=== PATIENT | male | born 1995 | race Two or more races ===

== ENCOUNTER 2017-08-22 18:12 | Emergency (ER) | payer SELFPAY ==
[2017-08-22 18:52] VITALS: BP 143/73
--- NOTE | 2017-08-22 19:29 | UC ---
Complaint Male HPI - HPI Summary HPI Summary: Pt c/o painful lesion on end of penis. Pt states he has new sexual partner and lesion begin after first , unprotected intercourse with her. - History of Current Complaint Hx Obtained From: Patient, Road Grader Onset/Duration: Sudden Onset, Lasting Days, Still Present Timing: Constant Severity Initially: Mild Severity Currently: Mild Pain Intensity: 0 Location: Penis Character: Sharp, Burning Aggravating Factor(s): Palpation Alleviating Factor(s): Nothing Associated Signs And Symptoms: Positive: Negative - Risk Factors Testicular Torsion: Negative <Simin Prasad NP - Last Filed: 08/22/17 19:59> <Ju Townsend - Last Filed: 08/23/17 07:08> - History of Current Complaint Chief Complaint: UCSTDScreening Stated Complaint: PERSONAL Time Seen by Provider: 08/22/17 18:56 - Allergies/Home Medications Allergies/Adverse Reactions: Allergies Allergy/AdvReac Type Severity Reaction Status Date / Time No Known Allergies Allergy Verified 08/22/17 18:46 PMH/Surg Hx/FS Hx/Imm Hx Previously Healthy: Yes - Surgical History Surgical History: None Surgery Procedure, Year, and Place: DENIES - Family History Known Family History: Positive: Cardiac Disease - Social History Occupation: Employed Full-time Lives: With Family Alcohol Use: None Substance Use Type: None Smoking Status (MU): Never Smoked Tobacco Have You Smoked in the Last Year: No <Simin Prasad NP - Last Filed: 08/22/17 19:59> Review of Systems Constitutional: Negative Skin: Other - painful lesion on penis Eyes: Negative ENT: Negative Respiratory: Negative Cardiovascular: Negative Gastrointestinal: Negative Genitourinary: Ulceration/Lesion - distal end penis Motor: Negative Neurovascular: Negative Musculoskeletal: Negative Neurological: Negative Psychological: Negative Is Patient Immunocompromised?: No All Other Systems Reviewed And Are Negative: Yes <Simin Prasad NP - Last Filed: 08/22/17 19:59> Physical Exam Triage Information Reviewed: Yes Appearance: Well-Appearing Vital Signs: Initial Vital Signs Temp 99.8 F 08/22/17 18:44 Pulse 71 08/22/17 18:44 Resp 16 08/22/17 18:44 BP 143/73 08/22/17 18:44 Pulse Ox 100 08/22/17 18:44 Vital Signs Reviewed: Yes Eye Exam: Normal ENT: Positive: Hearing grossly normal Dental Exam: Normal Neck exam: Normal Respiratory Exam: Normal Respiratory: Positive: No respiratory distress Male Genital Exam: Positive: Lesions - distal end penis, one, pencil eraser size , vessicle, c/o tenderness Musculoskeletal Exam: Normal Neurological Exam: Normal Psychological Exam: Normal Skin Exam: Other - vessicular lesion on distal penis <Simin Prasad NP - Last Filed: 08/22/17 19:59> Vital Signs: Initial Vital Signs Temp 99.8 F 08/22/17 18:44 Pulse 71 08/22/17 18:44 Resp 16 08/22/17 18:44 BP 143/73 08/22/17 18:44 Pulse Ox 100 08/22/17 18:44 <Ju Townsend - Last Filed: 08/23/17 07:08> Complaint Male Course/Dx - Course Course Of Treatment: I discussed wiht the pt my concern for genital herpes, as well as all the STD testing at todays visit. Pt alos agreed through interperter that he would allow his test results be told through friend/ certified court interpreter if all were negative and if any are positive that he would return toclinic for certified court interpreter services to give him his results. - Differential Dx/Diagnosis Differential Diagnosis/HQI/PQRI: Other - STD Provider Diagnoses: genital herpes <Simin Prasad NP Last Filed: 08/22/17 19:59> Discharge - Sign-Out/Discharge Documenting (check all that apply): Discharge/Admit/Transfer - Billing Disposition and Condition Condition: STABLE Disposition: Home <Simin Prasad NP - Last Filed: 08/22/17 19:59> - Billing Disposition and Condition Condition: STABLE Disposition: Home <Ju Townsend - Last Filed: 08/23/17 07:08> - Discharge Plan Condition: Stable Disposition: HOME Prescriptions: ValACYclovir (*) [Valtrex 1 GM(*)] 1 gm PO Q12H #14 tab Patient Education Materials: Genital Herpes Simplex (ED) Print Language: [place] Referrals: [facility] [Outside] No Primary Care Phys,NOPCP [Primary Care Provider] - Additional Instructions: You were tested today in your urine and your blood for sexually transmitted diseases. (Syphilis, hepatitis, herpes, gonorrhea, chlamydia, and trichamonas) These results may take up to one week to come back. As we discussed, with the certified court interpreter, if your results are all normal we will call Gray and tell him this. If we need to further discuss your results, we will tell Gray you need to come in for your results. You may need to check in as a patient and we will use the certified court interpreter services to discuss your results. Attestation Statement User Type: Provider - I was available for consult. This patient was seen by the ASHLEY. The patient was not presented to, seen by, or examined by me. -Jaime <Ju Townsend - Last Filed: 08/23/17 07:08>
--- NOTE | 2017-08-25 10:53 | UC ---
- Progress Note Progress Note: (+) HSV-2 -- inform patient -- Yakut speaking of note -- inform sexual partners as well Discharge - Sign-Out/Discharge Documenting (check all that apply): Discharge/Admit/Transfer - Discharge Plan Condition: Stable Disposition: HOME Prescriptions: ValACYclovir (*) [Valtrex 1 GM(*)] 1 gm PO Q12H #14 tab Patient Education Materials: Genital Herpes Simplex (ED) Print Language: MALAY Referrals: [facility] [Outside] No Primary Care Phys,NOPCP [Primary Care Provider] - Additional Instructions: You were tested today in your urine and your blood for sexually transmitted diseases. (Syphilis, hepatitis, herpes, gonorrhea, chlamydia, and trichamonas) These results may take up to one week to come back. As we discussed, with the interpreter deaf, if your results are all normal we will call Gray and tell him this. If we need to further discuss your results, we will tell Gray you need to come in for your results. You may need to check in as a patient and we will use the interpreter deaf services to discuss your results. - Billing Disposition and Condition Condition: STABLE Disposition: Home
== END 2017-08-22 19:50 | disposition home or self-care (01) ==
LOC: UCCORT 18:12
DX: A60.01 Herpesviral infection of penis (principal)
CPT/HCPCS: 36415; 86592; 86803; 87340; 87491; 87529; 87591; 87661; 99202; G0463

== ENCOUNTER 2018-01-16 18:58 | Emergency (ER) | payer SELFPAY ==
[2018-01-16 19:12] VITALS: BP 127/77
--- NOTE | 2018-01-16 19:45 | UC ---
Lower Extremity/Ankle HPI - HPI Summary HPI Summary: 22-year-old male comes in today with a chief complaint of swelling and redness and pain of the medial aspect of the left great toe. This has been going on for days. Pain is worse with walking and better with rest. No known trauma. Patient also complains of her herpes outbreak genital region which she's had before and he requested prescription for Valtrex. - History of Current Complaint Chief Complaint: UCSkin Stated Complaint: INFECTION ON TOENIAL Time Seen by Provider: 01/16/18 19:30 Pain Intensity: 6 - Allergies/Home Medications Allergies/Adverse Reactions: Allergies Allergy/AdvReac Type Severity Reaction Status Date / Time No Known Allergies Allergy Verified 01/16/18 19:12 PMH/Surg Hx/FS Hx/Imm Hx Previously Healthy: Yes - HX GENITAL HERPES - Surgical History Surgical History: None Surgery Procedure, Year, and Place: DENIES - Family History Known Family History: Positive: Cardiac Disease - Social History Alcohol Use: None Substance Use Type: None Smoking Status (MU): Never Smoked Tobacco Have You Smoked in the Last Year: No Review of Systems All Other Systems Reviewed And Are Negative: Yes Constitutional: Positive: Negative Skin: Positive: Other - SEE HPI Eyes: Positive: Negative ENT: Positive: Negative Respiratory: Positive: Negative Cardiovascular: Positive: Negative Gastrointestinal: Positive: Negative Genitourinary: Positive: Other - PATIENT REPORTS GENITAL HERPES OUT BREAK Motor: Positive: Negative Neurovascular: Positive: Negative Musculoskeletal: Positive: Other: - SEE HPI Neurological: Positive: Negative Psychological: Positive: Negative Is Patient Immunocompromised?: No Physical Exam Triage Information Reviewed: Yes Appearance: Well-Appearing, No Pain Distress, Well-Nourished Vital Signs: Initial Vital Signs Temp 98.2 F 01/16/18 19:07 Pulse 76 01/16/18 19:07 Resp 16 01/16/18 19:07 BP 127/77 01/16/18 19:07 Pulse Ox 100 01/16/18 19:07 Vital Signs Reviewed: Yes Eye Exam: Normal Eyes: Positive: Conjunctiva Clear Neck exam: Normal Neck: Positive: Supple Respiratory: Positive: No respiratory distress Musculoskeletal: Positive: Strength Intact, ROM Intact Neurological: Positive: Alert, Muscle Tone Normal Psychological Exam: Normal Psychological: Positive: Age Appropriate Behavior Skin: Positive: Other - Left great toe has erythema and swelling on the medial aspect along the medial border of the toenail. There is no abscess no drainage at this time no streaking. Lower Extremity Course/Dx - Differential Dx/Diagnosis Provider Diagnoses: LEFT GREAT TOE PAROYNCHIA. GENITAL HERPES Discharge - Sign-Out/Discharge Documenting (check all that apply): Patient Departure All imaging exams completed and their final reports reviewed: No Studies - Discharge Plan Condition: Stable Disposition: HOME Prescriptions: Cephalexin CAP* [Keflex CAP*] 500 mg PO QID #40 cap Valacyclovir HCl [Valacyclovir] 1,000 mg PO BID #20 tab Patient Education Materials: Paronychia (ED), Genital Herpes Simplex (ED) Referrals: Kevin HARRIS,Kamar Horton [Doctor of Podiatric Medicine] - Raisa Chacon DPM [Doctor of Podiatric Medicine] - Additional Instructions: FOLLOW UP WITH PODIATRY. GET RECHECKED FOR ANY WORSENING OF YOUR CONDITION OR QUESTIONS OR CONCERNS. - Billing Disposition and Condition Condition: STABLE Disposition: Home
== END 2018-01-16 19:57 | disposition home or self-care (01) ==
LOC: UCCORT 18:58
DX: L03.032 Cellulitis of left toe (principal); B00.9 Herpesviral infection, unspecified
CPT/HCPCS: 99212; G0463